=== PATIENT | female | born 1990 | race Caucasian/White ===

== ENCOUNTER 2017-07-27 17:52 | Observation (INO) | payer OTHER ==
[~2017-07-27] VITALS: Ht 152.4 cm; Wt 53.7 kg
[~2017-07-27 17:52] MED LIST: NOHOMEMEDS; XANAX XR1 MG PO
[2017-07-27 19:16] LABS: BASOPHIL (%) 0.3 % (0-1); EOSINOPHIL (%) 0.4 % (0-5); EOSINOPHIL COUNT 0.1 K/uL (0-0.3); HEMATOCRIT 46.9 % (36.0-46.0); HEMOGLOBIN 16.1 G/DL (11.9-15.5); IMMATURE GRANULOCYTE (%) 0.5 % (0.0-0.7); LYMPHOCYTE (%) 12.3 % (15-42); LYMPHOCYTE COUNT 1.6 K/uL (1.0-2.8); MCH 30.4 PG (29.0-34.0); MCHC 34.3 G/DL (30.0-36.0); MCV 88.7 FL (83-99); MONOCYTE (%) 3.3 % (3-12); MONOCYTE COUNT 0.4 K/uL (0-0.8); NEUTROPHIL (%) 83.2 % (45-76); NEUTROPHIL COUNT 10.5 K/uL (1.8-6.4); RBC DIS.WIDTH-CV 12.5 % (11.8-14.6); RBC DIS.WIDTH-SD 40.8 % (39-53); RED BLOOD COUNT 5.29 M/uL (3.80-5.20); WHITE BLOOD COUNT 12.6 K/uL (4.1-10.2)
[2017-07-27 19:38] LABS: ALBUMIN 4.7 g/dL (3.2-4.8); CHLORIDE 103 mEq/L (99-109); POTASSIUM 4.9 mEq/L (3.7-5.4); SODIUM 138 mEq/L (136-147)
[2017-07-27 19:40] LABS: GLUCOSE 109 mg/dL (70-99); TOTAL PROTEIN 8.9 g/dL (6.4-8.3)
[2017-07-27 19:42] LABS: TOTAL BILIRUBIN 0.6 mg/dL (0.0-1.0)
[2017-07-27 19:44] LABS: ALKALINE PHOSPHATASE 76 IU/L (3-129); CREATININE 0.8 mg/dL (0.6-1.3); GFR ESTIMATE (CALCULATED) > 59 mL/min/
[2017-07-27 19:45] LABS: UREA NITROGEN (BUN) 15 mg/dL (9-23)
[2017-07-27 19:46] LABS: AST (GOT) 58 IU/L (2-34)
[2017-07-27 19:47] LABS: ALT (GPT) 76 IU/L (3-49); LIPASE 23 U/L (1.0-51.0)
[2017-07-27 20:17] LABS: PLAT.SUFFICIENCY DECREASED; PLATELET COUNT 55 K/uL (156-360)
[2017-07-27 20:33] LABS: APPEARANCE CLOUDY ((CLEAR)); BILIRUBIN NEGATIVE; BLOOD NEGATIVE; GLUCOSE (STRIP) NEGATIVE; KETONES 80; LEUKOCYTES TRACE; NITRITE NEGATIVE; PROTEIN (STRIP) >=500; SPECIFIC GRAVITY 1.027 (1.000-1.030); UROBILINOGEN 0.2 MG/DL (0.2-1.0)
[2017-07-27 20:34] LABS: COLOR DK YELLOW ((YELLOW))
[2017-07-27 20:54] LABS: BACTERIA 3+ /HPF; CALCIUM OXALATE CRYSTALS RARE /HPF; EPITHELIAL CELLS 4+ /HPF; MUCUS 2+ /LPF; RED BLOOD CELLS 0-5 /HPF (0-5); UCUL ADDED? YES; WHITE BLOOD CELLS RARE /HPF (0-5)
[2017-07-27 23:43] LABS: CHLORIDE 108 mEq/L (99-109); SODIUM 138 mEq/L (136-147)
[2017-07-27 23:45] LABS: GLUCOSE 113 mg/dL (70-99)
[2017-07-27 23:47] LABS: POTASSIUM 3.9 mEq/L (3.7-5.4)
[2017-07-27 23:49] LABS: CREATININE 0.7 mg/dL (0.6-1.3); GFR ESTIMATE (CALCULATED) > 59 mL/min/
[2017-07-27 23:50] LABS: UREA NITROGEN (BUN) 15 mg/dL (9-23)
[2017-07-28] MEDS ORDERED: TYL (00:29)
[2017-07-28 02:52] LABS: CANDIDA DNA PROBE NEGATIVE; GARDNERELLA DNA PROBE POSITIVE; TRICHOMONAS DNA PROBE NEGATIVE
[2017-07-28 03:01] VITALS: BP 130/75
[2017-07-28 07:15] VITALS: BP 129/74
[2017-07-28 08:48] LABS: CHLORIDE 107 MEQ/L (99-109); CREATININE 0.5 MG/DL (0.6-1.3); GFR ESTIMATE (CALCULATED) > 59 mL/min/; GLUCOSE 109 mg/dL (70-99); POTASSIUM 3.3 MEQ/L (3.7-5.4); SODIUM 139 MEQ/L (136-147); UREA NITROGEN (BUN) 11 mg/dL (9-23)
[2017-07-28 09:00] LABS: HEMATOCRIT 39.5 % (36.0-46.0); HEMOGLOBIN 13.3 G/DL (11.9-15.5); MCH 29.6 PG (29.0-34.0); MCHC 33.7 G/DL (30.0-36.0); RBC DIS.WIDTH-CV 12.8 % (11.8-14.6); RBC DIS.WIDTH-SD 41.4 % (39-53); RED BLOOD COUNT 4.49 M/uL (3.80-5.20); WHITE BLOOD COUNT 14.6 K/uL (4.1-10.2)
[2017-07-28 09:34] LABS: PLAT.SUFFICIENCY ADEQUATE
[2017-07-28 09:36] LABS: PLATELET COUNT 304 K/uL (156-360)
[2017-07-28 09:57] LABS: SERUM ETHYL ALCOHOL < 10 mg/dL
[2017-07-28 11:52] VITALS: BP 120/64
[2017-07-28] MEDS ORDERED: FLAGYL500 MG PO (13:26)
[2017-07-28] MEDS ORDERED: ATIVAN0.5 MG PO (13:26)
[2017-07-28] MEDS ORDERED: TRAMADOL HCL50 MG PO (13:26)
[2017-07-28] MEDS ORDERED: ZOFRAN8 MG PO (13:26)
[2017-07-29 00:12] LABS: BENZODIAZEPINES, URINE SCREEN Negative (200 ng/mL)
[2017-07-29 12:44] LABS: SOURCE SWAB
== END 2017-07-28 13:58 | disposition home or self-care (01) ==
LOC: EME 17:52 → EDOF 07-28 00:36 → 5EAST 07-28 00:36 → EDOF 07-28 00:36 → ENRESERV 07-28 00:39 → 5EAST 07-28 02:46
PROVIDERS: Emergency Medicine; Hospitalist; Internal Medicine
DX: R10.30 Lower abdominal pain, unspecified (principal); N76.0 Acute vaginitis; B96.89 Other specified bacterial agents as the cause of diseases classified elsewhere; N39.0 Urinary tract infection, site not specified; R11.2 Nausea with vomiting, unspecified; R42 Dizziness and giddiness; D69.6 Thrombocytopenia, unspecified; M54.9 Dorsalgia, unspecified; F41.9 Anxiety disorder, unspecified; Z86.19 Personal history of other infectious and parasitic diseases; B18.2 Chronic viral hepatitis C; G43.909 Migraine, unspecified, not intractable, without status migrainosus; F17.210 Nicotine dependence, cigarettes, uncomplicated; F14.11 Cocaine abuse, in remission
CPT/HCPCS: 74176; 76856; 80048; 80048 91; 80053; 80306 90; 81003; 81025; 83605; 83690; 85025; 85027; 87086; 87210; 87480; 87491; 87510; 87591; 87660; 99281; 99285; G0378; G0480; J0696; J1200; J1650; J1885; J2060; J2270; J2405; J2765; J7030; S0030